=== PATIENT | female | born 1965 | race Caucasian/White ===

== ENCOUNTER → 2017-03-08 | Outpatient (CLI) | payer OTHER ==
[~2017-03-08] MED LIST: LEVO125C2 PO; LEVO50TA5 PO; NITR100C56 PO; ONDA4TAB7; vicodin PO
== END | disposition home or self-care (01) ==
LOC: EDSTATUS 13:15 → CFH 13:41
PROVIDERS: ATTEND Physician Assistant
DX: Z12.31 Encounter for screening mammogram for malignant neoplasm of breast (principal)
CPT/HCPCS: G0202

== ENCOUNTER → 2017-07-31 | Outpatient (CLI) | payer OTHER ==
[~2017-07-31] MED LIST changes: +CITA10TA4 PO; +ESOM40CA PO; +LACT1CAP37 PO; +biocleanse PO
== END | disposition home or self-care (01) ==
LOC: STAR 09:40
PROVIDERS: ATTEND Plastic Surgery
DX: Z02.9 Encounter for administrative examinations, unspecified (principal)

== ENCOUNTER 2017-08-10 11:41 | Day surgery (SDC) | payer OTHER ==
[2017-07-31 10:08] VITALS: BP 132/81
[~2017-08-10] VITALS: Ht 162.6 cm; Wt 86.2 kg
[2017-08-10] MEDS ORDERED: LACTATED RINGERS 1,000 ML IV SCH (12:17)
[2017-08-10] MEDS ORDERED: BUPIVACAINE/PF 0.5% ONE (13:09)
[2017-08-10] MEDS ORDERED: SODIUM BICARBONATE 1 MEQ/ML, 50ML VIAL ONE (13:10)
[2017-08-10] MEDS ORDERED: LIDOCAINE/PF 0.5% ,50ML ONE (13:10)
[2017-08-10] MEDS ORDERED: EPINEPHRINE 1 MG/ML, 1ML ONE (13:10)
[2017-08-10] MEDS ORDERED: MIDAZOLAM 1 MG/ML, 2ML ONE (13:24)
[2017-08-10] MEDS ORDERED: FENTANYL PF 100 MCG/2ML ONE ×3 (13:24→16:58)
[2017-08-10] MEDS ORDERED: ROCURONIUM 10 MG/ML ONE ×2 (13:26→13:43)
[2017-08-10] MEDS ORDERED: PROPOFOL 10 MG/ML, 20ML ONE (13:26)
[2017-08-10] MEDS ORDERED: SUCCINYLCHOLINE 20 MG/ML, 10ML ONE (13:26)
[2017-08-10] MEDS ORDERED: KETOROLAC 30 MG/1 ML IV PRN (13:30)
[2017-08-10] MEDS ORDERED: MIDAZOLAM 1 MG/ML, 2ML IV PRN (13:30)
[2017-08-10] MEDS ORDERED: LABETALOL 5MG/ML, 20ML IV PRN (13:30)
[2017-08-10] MEDS ORDERED: METOPROLOL 1 MG/ML, 5ML IV PRN (13:30)
[2017-08-10] MEDS ORDERED: EPHEDRINE 50 MG/ML, 1ML IVPush PRN (13:30)
[2017-08-10] MEDS ORDERED: hydrALAzine 20 MG/ML, 1ML IV PRN (13:30)
[2017-08-10] MEDS ORDERED: HYDROcodone/APAP 7.5-325MG/15ML UDC PO PRN (13:30)
[2017-08-10] MEDS ORDERED: ONDANSETRON 2MG/ML, 2ML IVPush PRN (13:30)
[2017-08-10] MEDS ORDERED: ALBUTEROL SULFATE 2.5 MG/3 ML NPPB PRN (13:30)
[2017-08-10] MEDS ORDERED: OXYcodone 5 MG/5 ML ORAL.SOL UDC PO PRN (13:30)
[2017-08-10] MEDS ORDERED: METOCLOPRAMIDE 5 MG/ML, 2ML IV PRN (13:30)
[2017-08-10] MEDS ORDERED: MEPERIDINE/PF 25MG/0.5ML IVPush PRN (13:30)
[2017-08-10] MEDS ORDERED: PROMETHAZINE 25 MG/ML, 1ML IV PRN (13:30)
[2017-08-10] MEDS ORDERED: ACETAMINOPHEN 325 MG TABLET PO PRN (13:30)
[2017-08-10] MEDS ORDERED: GLYCOPYRROLATE 0.4 MG/2 ML, 2ML ONE (13:48)
[2017-08-10] MEDS ORDERED: CEFAZOLIN 1,000 MG ONE ×2 (13:54)
[2017-08-10] MEDS ORDERED: ONDANSETRON 2MG/ML, 2ML ONE ×2 (14:04→16:25)
[2017-08-10] MEDS ORDERED: DEXAMETHASONE 4 MG/ML, 1ML ONE ×2 (14:04)
[2017-08-10] MEDS ORDERED: HYDROmorphone 1 MG/ML, 1ML ONE (16:16)
[2017-08-10] MEDS ORDERED: ACETAMINOPHEN 650 MG/20.3 ML UDC ONE (16:16)
[2017-08-10] MEDS ORDERED: OXYcodone 5 MG/5 ML ORAL.SOL UDC ONE (16:17)
[2017-08-10] MEDS: FENTANYL PF 100 MCG/2ML IV PRN ×3 (16:21→16:59)
[2017-08-10] MEDS ORDERED: KETOROLAC 30 MG/1 ML ONE (16:26)
[2017-08-10] MEDS: HYDROmorphone 1 MG/ML, 1ML IV PRN ×2 (16:29→16:55)
== END 2017-08-10 19:05 ==
LOC: OUT 11:41 → EDSTATUS 13:30 → OUT 19:05
PROVIDERS: ATTEND Plastic Surgery
DX: N62 Hypertrophy of breast (principal); N64.89 Other specified disorders of breast; Z88.8 Allergy status to other drugs, medicaments and biological substances; M54.6 Pain in thoracic spine
CPT/HCPCS: 19318; 88305; C1729; J0330; J0690; J1100; J1170; J1885; J2250; J2405; J2704; J3010; J3490; J7120; J0171; J2001

== ENCOUNTER 2020-04-08 13:25 | Outpatient (CLI) | payer OTHER | END 2020-04-08 23:59 | disposition home or self-care (01) | LOC: CFH 13:25 | PROVIDERS: ATTEND Physician Assistant | DX: R92.1 Mammographic calcification found on diagnostic imaging of breast (principal); Z80.3 Family history of malignant neoplasm of breast | CPT/HCPCS: 76642; 77066; G0279 ==

== ENCOUNTER → 2021-05-07 | Outpatient (CLI) | payer OTHER ==
[~2021-05-07] MED LIST changes: -LACT1CAP37 PO; +LACT1CAP47 PO
== END | disposition home or self-care (01) ==
LOC: CFH 13:06
PROVIDERS: ATTEND Physician Assistant
DX: Z12.31 Encounter for screening mammogram for malignant neoplasm of breast (principal)
CPT/HCPCS: 77063; 77067